=== PATIENT | female | born 2000 | race Caucasian/White ===

== ENCOUNTER → 2024-11-15 10:27 | Outpatient (BNVA) | payer MEDICAID, SELFPAY | PROVIDERS: PCP Obstetrics & Gynecology; Visit Provider Internal Medicine Rheumatology | DX: Z79.899 Other long term (current) drug therapy (principal); M06.00 Rheumatoid arthritis without rheumatoid factor, unspecified site; Z11.59 Encounter for screening for other viral diseases; M45.6 Ankylosing spondylitis lumbar region; Z11.1 Encounter for screening for respiratory tuberculosis; M53.3 Sacrococcygeal disorders, not elsewhere classified; M54.50 Low back pain, unspecified; M79.642 Pain in left hand; M79.641 Pain in right hand; M79.672 Pain in left foot; M79.671 Pain in right foot | CPT/HCPCS: 36415; 72100; 72202; 73130; 73630; 80076; 82306; 82565; 83520; 84439; 84443; 85025; 85651; 86140; 86200; 86480; 86704; 86803; 86812; 87340 ==